=== PATIENT | male | born 1985 | race Two or more races ===

== ENCOUNTER 2017-05-03 09:54 | Day surgery (SDC) | payer BC ==
[2017-05-01 10:29] VITALS: BMI 23.1
[~2017-05-03 09:54] MED LIST: LACTATED RINGERS 1,000 ML IV SCH
[2017-05-03 10:13] VITALS: TEMP 97.2
[2017-05-03] MEDS ORDERED: LIDOCAINE 1% 20 ML VIAL (10MG/ML) FOR IV START INTRADERMA ONE (10:14)
[2017-05-03] MEDS ORDERED: fentaNYL (PF) 50 MCG/ML 2 ML AMP ONE (11:00)
[2017-05-03] MEDS ORDERED: PROPOFOL 10 MG/ML 20 ML VIAL IV ONE (11:00)
[2017-05-03] MEDS ORDERED: MIDAZOLAM 2 MG/2 ML VIAL ONE (11:00)
[2017-05-03] MEDS ORDERED: LIDOCAINE 1% INJ 10MG/ML (20 ML MDV) ONE (11:00)
[2017-05-03 11:36] VITALS: RESP 16
--- NOTE | 2017-05-03 11:51 | P.PCN ---
Date of Procedure: 05/03/17 Procedure(s) Performed: Procedure: Colonoscopy and biopsy. Preoperative diagnosis: Rectal bleeding. Postoperative diagnosis: 1. Dry posterior anal fistula and low-grade internal hemorrhoids but no obvious fissure or bleeding at the time of the exam. 2. Colon and terminal ileum otherwise within normal limits, biopsies obtained. Preparation: HalfLytely prep. Sedation: Was provided by anesthesia. Brief clinical history: The patient is a 31-year-old male who is referred for this evaluation because of persistent fresh bleeding in his stools and on the toilet tissue that he has been observing for the last 2-3 years. He also describes his stools to be soft and diarrheic. There is history of psoriasis but no other significant history. This evaluation is to assess for inflammatory bowel disease or other pathology. Procedure: With the patient on his left lateral decubitus position and after informed consent and adequate sedation, the perianal area was inspected and it showed some skin relaxation and redundancy and a dry posterior anal fistula but no definite fissure. There was some excoriation in the immediate perianal area but no spontaneous bleeding. No masses were felt on digital rectal examination. The Olympus CFQ 180 AL videocolonoscope was then inserted in the rectum in the usual fashion and advanced to the cecum. I intubated the ileocecal valve and examined the terminal ileum. Terminal ileum and colon appeared healthy with no edema, erythema, friability, ulceration, exudation or spontaneous bleeding. No polyps or tumors were seen or any obvious diverticular disease. I retroflexed the endoscope in the rectum before the endoscope was withdrawn. Low-grade internal hemorrhoids were noted there was no bleeding. I also obtained biopsies from the terminal ileum and right colon before the endoscope was withdrawn. The patient tolerated the procedure well. Plan: The patient was reassured. Will await pathology results. Discussed dietary measures and local care for hemorrhoids. I will make further recommendations based on the biopsy results and his course. He will follow up with you as planned.
[2017-05-03 11:54] VITALS: BP 111/70; PULSE 58
== END 2017-05-03 12:24 | disposition home or self-care (01) ==
LOC: ORWHC2ENDO 09:54
DX: K60.3 Anal fistula (principal); K64.8 Other hemorrhoids; R19.7 Diarrhea, unspecified; K62.5 Hemorrhage of anus and rectum; L40.9 Psoriasis, unspecified; M19.90 Unspecified osteoarthritis, unspecified site; F17.200 Nicotine dependence, unspecified, uncomplicated
CPT/HCPCS: 88305; 45380; J2250; J2001; J3010; J2704

== ENCOUNTER 2018-10-15 10:04 | Emergency (ER) | payer BC ==
[2018-10-15 10:18] VITALS: RESP 18; TEMP 98.1
[2018-10-15] MEDS ORDERED: KETOROLAC 30 MG/ML 1 ML VIAL IVP STA (11:12)
[2018-10-15] MEDS ORDERED: SODIUM CHLORIDE 0.9% 1,000 ML IV STA (11:12)
--- NOTE | 2018-10-15 11:17 | ED ---
General Adult HPI - General Chief complaint: Abdominal Pain Stated complaint: ABDOMINAL PAIN, POSS CLOT Time Seen by Provider: 10/15/18 10:58 Source: patient, RN notes reviewed Mode of arrival: ambulatory Limitations: no limitations - History of Present Illness Initial comments: 32-year-old male presents to the emergency department for a chief complaint of flank and abdominal pain 2 days. Patient states this started in his back and is now in his bilateral upper abdomen. Patient states car rides make the pain worse after he gets every bump. Patient denies fevers or chills. Patient was seen at [facility] ER and states they wanted to had him. This was yesterday. Patient states he may have had a blood clot in his mesentery. Patient states he has had bouts of nausea but has not felt nauseous today. He last had a normal bowel movement earlier today. Patient does admit to blood in stool but states this has been ongoing for years and that he recently had a colonoscopy done which revealed hemorrhoids.Patient has no other complaints at this time including shortness of breath, chest pain, vomiting, headache, or visual changes. - Related Data Home Medications Medication Instructions Recorded Confirmed Escitalopram [Lexapro] 20 mg PO HS 05/01/17 10/15/18 Allergies Allergy/AdvReac Type Severity Reaction Status Date / Time cefaclor [From Ceclor] Allergy Unknown Unknown Verified 10/15/18 11:18 Childhood Review of Systems ROS Statement: Those systems with pertinent positive or pertinent negative responses have been documented in the HPI. ROS Other: All systems not noted in ROS Statement are negative. Past Medical History Past Medical History: Osteoarthritis (OA), Skin Disorder Additional Past Medical History / Comment(s): PSORIASIS. STATES SEEN IN ER FOR CHEST PAINS DUE TO ANXIETY, STATES DIARRHEA WITH BLOOD IN STOOL. History of Any Multi-Drug Resistant Organisms: None Reported Past Surgical History: No Surgical Hx Reported Additional Past Anesthesia/Blood Transfusion Reaction / Comment(s): PATIENT HAS NEVER RECEIVED ANESTHESIA. Past Psychological History: Anxiety, Depression Smoking Status: Current every day smoker Past Alcohol Use History: Daily Past Drug Use History: Marijuana - Past Family History Mother Family Medical History: Cancer General Exam Limitations: no limitations General appearance: alert, in no apparent distress Head exam: Present: atraumatic, normocephalic, normal inspection Eye exam: Present: normal appearance, PERRL, EOMI. Absent: scleral icterus, conjunctival injection, periorbital swelling ENT exam: Present: normal exam, mucous membranes moist Neck exam: Present: normal inspection, full ROM. Absent: tenderness, meningismus, lymphadenopathy Respiratory exam: Present: normal lung sounds bilaterally. Absent: respiratory distress, wheezes, rales, rhonchi, stridor Cardiovascular Exam: Present: regular rate, normal rhythm, normal heart sounds. Absent: systolic murmur, diastolic murmur, rubs, gallop, clicks GI/Abdominal exam: Present: soft, tenderness (minimal abdominal tenderness generalized to the upper abdomen without rebound or guarding), normal bowel sounds. Absent: distended, guarding, rebound, rigid Back exam: Absent: CVA tenderness (R), CVA tenderness (L), vertebral tenderness Neurological exam: Present: alert, oriented X3, CN II-XII intact Psychiatric exam: Present: normal affect, normal mood Skin exam: Present: warm, dry, intact, normal color. Absent: rash Course Vital Signs 10/15/18 10:14 Temperature 98.1 F Pulse Rate 90 Respiratory 18 Rate Blood Pressure 114/82 O2 Sat by Pulse 99 Oximetry Medical Decision Making - Medical Decision Making 32-year-old male presents to the emergency department for chief complaint of abdominal pain over the past few days. Patient states he was seen at [facility] yesterday and they were concerned about a blood clot in the mesentery. Patient states he has been nauseous and has had diarrhea for the past several days. On exam patient has minimal abdominal tenderness with the worsening in the left lower quadrant. No right upper quadrant tenderness, negative Caldera sign. CT from [facility] showed likely enteritis or inflammatory or infectious etiology with ileus. There is also diffuse mild mesenteric edema. Upon review of the note from [facility] ER physician had spoken with surgery who are concerned about possible mesenteric thrombosis and recommended admission with heparin. Patient signed out AGAINST MEDICAL ADVICE. Patient states he is feeling significantly better today but thought he should get a second opinion. CBC and CMP are unremarkable. Mild bump in bilirubin of 1.6 but no right upper quadrant tenderness.After finally getting reports from [facility] I did recommend adding a lactic acid as well as a repeat CAT scan. However patient refuses this. He states he is feeling so much better than yesterday and has an appointment with his primary care provider today. He states he wants to go home. I again spoke with patient about these risks of possible blood clot but since he is feeling better he would like to go home. He will follow up with his primary care doctor tomorrow for which she has an appointment. He will return here if has any worsening symptoms. - Lab Data Result diagrams: 10/15/18 11:58 10/15/18 11:58 Lab Results 10/15/18 10/15/18 10/15/18 Range/Units 11:58 11:58 13:00 WBC 6.8 (3.8-10.6) k/uL RBC 4.79 (4.30-5.90) m/uL Hgb 14.5 (13.0-17.5) gm/dL Hct 43.0 (39.0-53.0) % MCV 89.8 (80.0-100.0) fL MCH 30.3 (25.0-35.0) pg MCHC 33.8 (31.0-37.0) g/dL RDW 12.6 (11.5-15.5) % Plt Count 259 (150-450) k/uL Neutrophils % 75 % Lymphocytes % 13 % Monocytes % 8 % Eosinophils % 2 % Basophils % 0 % Neutrophils # 5.2 (1.3-7.7) k/uL Lymphocytes # 0.9 L (1.0-4.8) k/uL Monocytes # 0.5 (0-1.0) k/uL Eosinophils # 0.2 (0-0.7) k/uL Basophils # 0.0 (0-0.2) k/uL Sodium 136 L (137-145) mmol/L Potassium 4.3 (3.5-5.1) mmol/L Chloride 104 (98-107) mmol/L Carbon Dioxide 26 (22-30) mmol/L Anion Gap 6 mmol/L BUN 12 (9-20) mg/dL Creatinine 0.78 (0.66-1.25) mg/dL Est GFR (CKD-EPI)AfAm >90 (>60 ml/min/1.73 sqM) Est GFR (CKD-EPI)NonAf >90 (>60 ml/min/1.73 sqM) Glucose 85 (74-99) mg/dL Calcium 9.2 (8.4-10.2) mg/dL Total Bilirubin 1.6 H (0.2-1.3) mg/dL AST 31 (17-59) U/L ALT 46 (21-72) U/L Alkaline Phosphatase 54 (38-126) U/L Total Protein 6.7 (6.3-8.2) g/dL Albumin 4.0 (3.5-5.0) g/dL Amylase 42 (30-110) U/L Lipase 54 (23-300) U/L Urine Color Yellow Urine Appearance Clear (Clear) Urine pH 5.5 (5.0-8.0) Ur Specific [place] 1.011 (1.001-1.035) Urine Protein Negative (Negative) Urine Glucose (UA) Negative (Negative) Urine Ketones Negative (Negative) Urine Blood Trace H (Negative) Urine Nitrite Negative (Negative) Urine Bilirubin Negative (Negative) Urine Urobilinogen <2.0 (<2.0) mg/dL Ur Leukocyte Esterase Negative (Negative) Urine RBC 2 (0-5) /hpf Urine WBC <1 (0-5) /hpf Ur Squamous Epith Cells <1 (0-4) /hpf Urine Mucus Rare H (None) /hpf Disposition Clinical Impression: Abdominal pain Disposition: Left Against Medical Advice Condition: Good Instructions (If sedation given, give patient instructions): Abdominal Pain (ED) Additional Instructions: Please take Motrin and Tylenol for pain. Please follow-up with your primary care doctor at your appointment tomorrow. Return here to the emergency department immediately if having worsening symptoms for CAT scan. Is patient prescribed a controlled substance at d/c from ED?: No Referrals: Logan Nieto DO [Primary Care Provider] - 1-2 days Daniel Loya MD [STAFF PHYSICIAN] - 1-2 days Time of Disposition: 14:33
[2018-10-15 12:47] LABS: Basophils % (A) 0 %; Eosinophils # (A) 0.2 k/uL (0-0.7); Eosinophils % (A) 2 %; HGB 14.5 gm/dL (13.0-17.5); Lymphocytes # (A) 0.9 k/uL (1.0-4.8); Lymphocytes % (A) 13 %; MCH 30.3 pg (25.0-35.0); MCHC 33.8 g/dL (31.0-37.0); MCV 89.8 fL (80.0-100.0); Mean Platelet Volume 6.9; Monocytes # (A) 0.5 k/uL (0-1.0); Monocytes % (A) 8 %; Neutrophils # (A) 5.2 k/uL (1.3-7.7); Neutrophils % (A) 75 %; Platelet Count 259 k/uL (150-450); RBC 4.79 m/uL (4.30-5.90); RDW 12.6 % (11.5-15.5); WBC 6.8 k/uL (3.8-10.6)
[2018-10-15 13:01] LABS: ALT 46 U/L (21-72); AST 31 U/L (17-59); Alkaline Phosphatase 54 U/L (38-126); Amylase 42 U/L (30-110); Anion Gap 6 mmol/L; Blood Urea Nitrogen 12 mg/dL (9-20); Calcium 9.2 mg/dL (8.4-10.2); Carbon Dioxide 26 mmol/L (22-30); Chloride 104 mmol/L (98-107); Glucose 85 mg/dL (74-99); Lipase 54 U/L (23-300); Potassium 4.3 mmol/L (3.5-5.1); Sodium 136 mmol/L (137-145); Total Bilirubin 1.6 mg/dL (0.2-1.3); Total Protein 6.7 g/dL (6.3-8.2)
[2018-10-15 13:37] LABS: Appearance,Urine Clear (Clear); Bilirubin,Urine Negative (Negative); Blood,Urine Trace (Negative); Color,Urine Yellow; Glucose,Urine (UA) Negative (Negative); Ketones,Urine Negative (Negative); Leukocyte Esterase,Urine Negative (Negative); Mucus,Urine Rare /hpf; Nitrite,Urine Negative (Negative); PH, Urine 5.5 (5.0-8.0); Protein,Urine Negative (Negative); RBC,Urine 2 /hpf (0-5); Specific Gravity,Urine 1.011 (1.001-1.035); Squamous Epithelial Cell,Urine <1 /hpf (0-4); Urobilinogen,Urine <2.0 mg/dL (<2.0); WBC,Urine <1 /hpf (0-5)
[2018-10-15 14:47] VITALS: BP 121/78; PULSE 79
== END 2018-10-15 14:45 | disposition left against medical advice (07) ==
LOC: EC 10:04
DX: R10.84 Generalized abdominal pain (principal); R93.89 Abnormal findings on diagnostic imaging of other specified body structures; Z53.29 Procedure and treatment not carried out because of patient's decision for other reasons; F32.9 Major depressive disorder, single episode, unspecified; F41.9 Anxiety disorder, unspecified; F17.200 Nicotine dependence, unspecified, uncomplicated; Z79.899 Other long term (current) drug therapy; Z88.1 Allergy status to other antibiotic agents
CPT/HCPCS: 36415; 80053; 82150; 83690; 85025; 81001; 99284; 96374; 96361 ×2; J1885

== ENCOUNTER 2018-11-21 08:48 | Day surgery (SDC) | payer BC ==
[2018-11-19 13:08] VITALS: BMI 26.4
[2018-11-21 09:13] VITALS: RESP 16; TEMP 97.8
[2018-11-21] MEDS ORDERED: LIDOCAINE 1% 20 ML VIAL (10MG/ML) FOR IV START INTRADERMA ONE (09:16)
[2018-11-21] MEDS ORDERED: LACTATED RINGERS 1,000 ML IV ONE (09:16)
[2018-11-21] MEDS ORDERED: MIDAZOLAM 2 MG/2 ML VIAL ONE (09:45)
[2018-11-21] MEDS ORDERED: PROPOFOL 10 MG/ML 20 ML VIAL IV ONE (09:45)
[2018-11-21] MEDS ORDERED: fentaNYL (PF) 50 MCG/ML 2 ML AMP ONE (09:45)
[2018-11-21] MEDS ORDERED: LIDOCAINE 1% INJ 10MG/ML (20 ML MDV) ONE (09:45)
--- NOTE | 2018-11-21 10:10 | P.PCN ---
Date of Procedure: 11/21/18 Procedure(s) Performed: Procedure: Esophagogastroduodenoscopy and biopsy. Preoperative diagnosis: Epigastric pain. Postoperative diagnosis: 1. Small sliding hiatal hernia with low-grade distal esophagitis but no evidence of complicated reflux disease. 2. Mild antral gastritis. 3. No ulcers or gastric outlet obstruction. 4. Multiple biopsies obtained from the duodenum, antrum and esophagus. Preparation and sedation: Was provided by anesthesia. Brief clinical history: The patient is a 33-year-old male who is scheduled for this evaluation because of recurrent abdominal pains and recent episode of epigastric pain for which he went to the emergency room. The patient was evaluated by me in April 2017 for abdominal issues and rectal bleeding and his colonoscopy did not show any significant abnormalities other than a dry fissure with no bleeding. The patient has a computed tomography scan done in the emergency room that did not show any obvious abnormalities. Procedure: With the patient on his left lateral decubitus position and after informed consent and adequate sedation, I passed the Olympus-GIF H 190 video upper endoscope through the cricopharyngeus down the esophagus. GE junction was around 42-43 cm from the incisors and there was a very small sliding hiatal hernia. The distal esophagus showed a faint short linear erosion or 2 consistent with LA grade A distal esophagitis. There were no strictures or Bar's esophagus or any ulcers or other pathology. The endoscope was then passed into the stomach which was insufflated with air and inspected in detail including the retroflex view in the cardia. There was minimal mottling and erythema in the antrum but no ulcers or erosions. Pyloric channel, duodenal bulb, post bulbar area and descending duodenum appeared within normal limits. Because of his symptoms, I obtained biopsies from the duodenum, antrum and esophagus then the endoscope was withdrawn. The patient tolerated the procedure well. Plan: The patient was reassured. Will await pathology results. He will follow up with you as planned and I will be happy to see in the office if his symptoms persist.
[2018-11-21 10:28] VITALS: BP 117/76; PULSE 76
== END 2018-11-21 11:00 | disposition home or self-care (01) ==
LOC: ORWHC2ENDO 08:48
DX: K44.9 Diaphragmatic hernia without obstruction or gangrene (principal); K29.50 Unspecified chronic gastritis without bleeding; K20.9 Esophagitis, unspecified; Z88.3 Allergy status to other anti-infective agents; Z79.899 Other long term (current) drug therapy; F17.210 Nicotine dependence, cigarettes, uncomplicated; F32.9 Major depressive disorder, single episode, unspecified
CPT/HCPCS: 88305; 43239; J2250; J2001; J3010; J2704